=== PATIENT | male | born 1945 | race Caucasian/White ===

== ENCOUNTER 2019-03-14 17:29 | Emergency (ER) | payer OTHER ==
[~2019-03-14] VITALS: Ht 162.6 cm; Wt 59.0 kg
[~2019-03-14 17:29] MED LIST: CEPH-443 PO; HYDR-3980 PO; IBUP-1561 PO; MUPI22OI2 TOP; NAR2I NS; SULF1TAB31 PO
[2019-03-14 17:33] VITALS: BP 123/70; PULSE 80; RESP 20; Ht 162.6 cm; Wt 59.0 kg
[2019-03-14] MEDS: LIDOCAINE 1% (MDV) 20 ML INJ SC ONE ×2 (18:09→18:16)
== END 2019-03-14 19:41 | disposition home or self-care (01) ==
LOC: FTE 17:29
DX: L02.213 Cutaneous abscess of chest wall (principal)
CPT/HCPCS: 10061; Z7502; Z7610